=== PATIENT | female | born 2000 | race Caucasian/White ===

== ENCOUNTER 2022-04-01 21:35 | Emergency (ER) | payer BC ==
[2022-04-01] MEDS ORDERED: Ketorolac Tromethamine 60 MG/2 ML VIAL ONE (21:57)
[2022-04-01] MEDS ORDERED: Cyclobenzaprine 10 MG TAB ONE (22:05)
== END 2022-04-01 22:16 | disposition home or self-care (01) ==
LOC: BURERS 21:35
DX: M54.6 Pain in thoracic spine (principal)
CPT/HCPCS: 96372; 99283; J1885